=== PATIENT | female | born 1995 | race Caucasian/White ===

== ENCOUNTER 2017-06-14 07:08 | Emergency (ER) | payer OTHER ==
[~2017-06-14] VITALS: Ht 170.2 cm; Wt 90.9 kg
[2017-06-14 07:15] VITALS: BP 104/53; PULSE 89; TEMP 98.2
[2017-06-14] MEDS ORDERED: MIRENA52 MG IY (07:17)
[2017-06-14] MEDS ORDERED: CEPHALEXIN500 M1 PO (07:58)
== END 2017-06-14 08:25 | disposition home or self-care (01) ==
LOC: COL.ER 07:08
DX: L98.9 Disorder of the skin and subcutaneous tissue, unspecified (principal); M79.674 Pain in right toe(s)